=== PATIENT | female | born 1995 | race African-American/Black ===

== ENCOUNTER 2018-01-20 08:04 | Emergency (ER) | payer OTHER ==
[~2018-01-20] VITALS: Ht 157.5 cm; Wt 66.4 kg
[2018-01-20 08:07] VITALS: TEMP 98.1
[2018-01-20] MEDS ORDERED: LO LOESTRIN FE1 TAB PO (08:09)
[2018-01-20] MEDS ORDERED: VISTARIL 2525 MG/CAP PO (08:59)
[2018-01-20 09:08] VITALS: BP 115/80; PULSE 67
== END 2018-01-20 09:16 | disposition home or self-care (01) ==
LOC: COL.ER 08:04
DX: F41.9 Anxiety disorder, unspecified (principal); R07.89 Other chest pain